=== PATIENT | female | born 1990 | race American Indian/Alaskan Native ===

== ENCOUNTER 2016-07-09 22:32 | Emergency (ER) | payer OTHER ==
[2016-07-10 00:29] LABS: Basophils % (Auto) 0.5 % (0.0-1.8); Eosinophils % (Auto) 1.7 % (0.0-4.3); Hematocrit 33.7 % (30.3-42.9); Hemoglobin 10.9 gm/dl (10.1-14.3); Mean Corpuscular HGB Conc 32 % (30-34); Mean Corpuscular Hemoglobin 27 pg (28-32); Mean Corpuscular Volume 83 fl (79-97); Platelet Count 232 K/mm3 (140-440); Red Blood Count 4.04 M/mm3 (3.65-5.03); Red Cell Distribution Width 13.8 % (13.2-15.2); White Blood Count 9.2 K/mm3 (4.5-11.0)
[2016-07-10 00:39] LABS: Bilirubin,Urine NEG (Negative); Blood,Urine NEG (Negative); Ketones,Urine TR mg/dL (Negative); Leukocyte Esterase,Urine NEG (Negative); Mucus,Urine 2+ /HPF; Nitrite,Urine NEG (Negative); Protein,Urine <15 mg/dL mg/dL (Negative)
[2016-07-10 00:49] LABS: Blood Urea Nitrogen 9 mg/dL (7-17); Carbon Dioxide 29 mmol/L (22-30)
[2016-07-10 00:50] LABS: Alanine Aminotransferase 16 units/L (7-56); Albumin 3.9 g/dL (3.9-5); Albumin/Globulin Ratio 1.2 %; Alkaline Phosphatase 55 units/L (35-129); Anion Gap 15 mmol/L; Bilirubin,Total 0.3 mg/dL (0.1-1.2); Calcium 9.1 mg/dL (8.4-10.2); Glucose 87 mg/dL (65-100); Lipase 19 units/L (13-60); Potassium 3.8 mmol/L (3.6-5.0); Sodium 142 mmol/L (137-145); Total Protein 7.2 g/dL (6.3-8.2)
[2016-07-10] MEDS ORDERED: MOTRIN PO ONE (03:50)
[2016-07-10] MEDS ORDERED: ZOFRAN ODT PO ONE (03:50)
--- NOTE | 2016-07-10 03:55 | Emergency Department Report ---
<ARLINE MICHAUD - Last Filed: 07/10/16 03:51> ED Abdominal Pain HPI - General Chief Complaint: Abdominal Pain Stated Complaint: ABD PAIN Source: patient Mode of arrival: Ambulatory Limitations: No Limitations - History of Present Illness Initial Comments: 25-year-old -[place] female comes in with complaint of nausea and stomach pains 3 days. Patient denies any vomiting denies any diarrhea she reports that the pain is constant pain moves around he feels sharp with pressure. Last dose of ibuprofen 600 mg was yesterday around 8 PM. She denies any urinary urgency frequency or dysuria. She denies any vaginal discharge. Since the past medical history of asthma currently takes no medications no known drug allergies last menstrual period was 06/30/2016. MD Complaint: abdominal pain -: days(s) (3) Location: suprapubic Radiation: other (moves around feels like pressure) Severity: severe Severity scale (0 -10): 9 Quality: sharp Consistency: constant Improves With: nothing Worsens With: nothing Treatments Prior to Arrival: NSAIDs, other - Related Data LMP Date: 06/30/16 Allergies Allergy/AdvReac Type Severity Reaction Status Date / Time No Known Allergies Allergy Unverified 07/09/16 23:49 ED Review of Systems ROS: Stated complaint: ABD PAIN Other details as noted in HPI Constitutional: denies: chills, fever Eyes: denies: eye pain, eye discharge, vision change ENT: denies: ear pain, throat pain Respiratory: denies: cough, shortness of breath, wheezing Cardiovascular: denies: chest pain, palpitations Endocrine: no symptoms reported Gastrointestinal: abdominal pain (suprapubic), nausea Genitourinary: denies: urgency, dysuria, frequency, hematuria, discharge Neurological: denies: headache, weakness, paresthesias Psychiatric: denies: anxiety, depression Hematological/Lymphatic: as per HPI ED Past Medical Hx - Past Medical History Previous Medical History?: Yes Hx Asthma: Yes - Surgical History Past Surgical History?: No - Social History Smoking Status: Never Smoker Substance Use Type: None ED Physical Exam - General Limitations: No Limitations General appearance: alert, in no apparent distress - Head Head exam: Present: atraumatic, normocephalic - ENT ENT exam: Present: mucous membranes moist - Respiratory Respiratory exam: Present: normal lung sounds bilaterally - Cardiovascular Cardiovascular Exam: Present: regular rate, normal rhythm, normal heart sounds - GI/Abdominal GI/Abdominal exam: Present: soft, tenderness (suprapubic), normal bowel sounds. Absent: distended - Extremities Exam Extremities exam: Present: normal inspection - Back Exam Back exam: Absent: CVA tenderness (R), CVA tenderness (L) - Neurological Exam Neurological exam: Present: alert, oriented X3 ED Course Vital Signs 07/09/16 07/10/16 23:49 04:23 Temperature 98.5 F 97.9 F Pulse Rate 58 L 54 L Respiratory 18 14 Rate Blood Pressure 109/78 Blood Pressure 106/62 [Right] O2 Sat by Pulse 100 98 Oximetry ED Medical Decision Making - Lab Data Result diagrams: 07/10/16 00:17 07/10/16 00:17 - Medical Decision Making Patient's been evaluated by this provider in fast track. Review of labs showed there is no urinary tract infection. There is no elevation of WBCs. We will give patient ibuprofen for pain and started by mouth trial. Patient verbalized understanding Critical care attestation.: If time is entered above; I have spent that time in minutes in the direct care of this critically ill patient, excluding procedure time. ED Disposition Disposition: DISCHARGED TO HOME OR SELFCARE Is pt being admited?: No Does the pt Need Aspirin: No Condition: Stable Instructions: Abdominal Pain (ED), Uterine Fibroids (ED) Prescriptions: Ibuprofen [Motrin] 600 mg PO Q8H PRN #30 tablet PRN Reason: Pain Ondansetron [Zofran Odt] 4 mg PO Q8H PRN #12 tab.rapdis PRN Reason: Nausea Referrals: [facility] [Provider Group] - 3-5 Days Forms: Work/School Release Form(ED), Accompanied Note <ALEXANDRA NIEVES - Last Filed: 07/10/16 09:10> ED Medical Decision Making - Lab Data Result diagrams: 07/10/16 00:17 07/10/16 00:17 - Medical Decision Making A/P: Endometrial polyps, pelvic pain 1-I discussed the findings of ultrasound with patient and referred her to [facility] patient agreed to follow-up this week and will call for an appointment 2-Motrin and Zofran when necessary for pain and nausea 3-pain significantly decreased patient now tolerating by mouth 4-I advised patient to return to the ED if she cannot tolerate by mouth if abdominal pain worsens or she has any significant vaginal bleeding, patient's family member cognizant of these symptoms as well and stated she would keep a close eye on her.
[2016-07-10 04:24] VITALS: BP 106/62
--- NOTE | 2016-07-10 08:02 | Ultrasound Report ---
FINAL REPORT PROCEDURE: US PELVIC COMPLETE TECHNIQUE: Real-time transabdominal sonography in multiple planes of pelvis was performed with image documentation. This examination was performed without Doppler. Vascular abnormalities, including ovarian torsion, will not be detectable without Doppler evaluation. CPT 90705 HISTORY: pelvic pain COMPARISON: No prior studies are available for comparison. FINDINGS: UTERUS Size: 7.7 x 3.3 x 4.4 cm. Endometrial thickness: 15.3 mm. There is no endometrial fluid. There are echogenic foci in the endometrium anteriorly measuring up to 9 millimeters with internal blood flow suggesting endometrial polyps. Orientation: anteverted. Cervix: Normal. Fibroids/masses: None. RIGHT Ovary: 2.7 x 1.4 x 1.8 cm. Appearance: Normal. LEFT Ovary: 2.9 x 1.5 x 2.2 cm. Appearance: Normal. Pelvic fluid: None. Other: There is minimal nonspecific free pelvic fluid.. IMPRESSION: There are echogenic foci in the endometrium anteriorly measuring up to 9 millimeters with internal blood flow suggesting endometrial polyps. There is minimal free pelvic fluid.
--- NOTE | 2016-07-10 08:03 | Ultrasound Report ---
FINAL REPORT PROCEDURE: US TRANSVAGINAL TECHNIQUE: Real-time transvaginal sonography in multiple planes of the pelvis was performed with image documentation. This examination was performed without Doppler. Vascular abnormalities, including ovarian torsion, will not be detectable without Doppler evaluation. CPT 25756 HISTORY: suprapubic pain and tendernes COMPARISON: No prior studies are available for comparison. FINDINGS: UTERUS Size: 7.7 x 3.3 x 4.4 cm. Endometrial thickness: 15.3 mm. There is no endometrial fluid. There are echogenic foci in the endometrium anteriorly measuring up to 9 millimeters with internal blood flow suggesting endometrial polyps. Orientation: anteverted. Cervix: Normal. Fibroids/masses: None. RIGHT Ovary: 2.7 x 1.4 x 1.8 cm. Appearance: Normal. LEFT Ovary: 2.9 x 1.5 x 2.2 cm. Appearance: Normal. Pelvic fluid: None. Other: There is minimal nonspecific free pelvic fluid.. IMPRESSION: There is no endometrial fluid. There are echogenic foci in the endometrium anteriorly measuring up to 9 millimeters with internal blood flow suggesting endometrial polyps. There is no ovarian mass or torsion. There is minimal free pelvic fluid..
== END 2016-07-10 09:32 | disposition home or self-care (01) ==
LOC: ED 22:32
DX: R10.30 Lower abdominal pain, unspecified (principal); R11.0 Nausea; J45.909 Unspecified asthma, uncomplicated
CPT/HCPCS: 36415; 76830; 76856; 80053; 81001; 81025; 83690; 85025; 99284; Q0162